=== PATIENT | male | born 1965 | race Two or more races ===

== ENCOUNTER 2024-12-28 12:36 | Emergency (ER) | payer OTHER, SELFPAY ==
[2024-12-28 12:43] VITALS: BMI 29.2
[2024-12-28 12:55] VITALS: BP 187/78; PULSE 48; RESP 17; TEMP 36.5; O2SAT 99
--- NOTE | 2024-12-28 12:55 | XR_ITS ---
Examination: AP chest single view TECHNIQUE: AP upright portable chest single view Date and time: December 28, 2024 1502 hours INDICATIONS: Chest pain shortness of breath beginning 2 days ago. FINDINGS: Median sternotomy wires. Normal heart size. No pneumonia or pulmonary edema The osseous structures are intact IMPRESSION: No active disease
--- NOTE | 2024-12-28 12:55 | EKG_ITS ---
[facility] Test Date: 2024-12-28 Pat Name: JARVIS DARDEN Department: Room: - Gender: Male Psychiatric Tech: : [id number] Requested By: Brenton Stanford Order Number: [id number] Reading MD: Brenton Stanford Measurements Intervals Watts Rate: 42 P: 38 NH: 182 QRS: -6 QRSD: 101 T: 105 QT: 453 QTc: 380 Interpretive Statements SINUS BRADYCARDIA POSSIBLE ANTERIOR MYOCARDIAL INFARCTION , OF INDETERMINATE AGE [30 ms Q WAVE IN V3/V4, OR R < 0.2 mV IN V4] No previous ECG available for comparison /store/S0/[id number].pdf
--- NOTE | 2024-12-28 12:56 | PD.EDRME ---
Rapid Medical Screening Exam RME Arrival date/time: 12/28/24 12:36 CC: Abrupt onset shortness of breath lasting approximately 15 to 20 seconds HPI onset 20 minutes ago with spontaneous resolution patient is very concerned as he had triple bypass surgery 2 years ago currently the patient is chest pain-free with no shortness of breath. Chief Complaint: Shortness of Breath/Dyspnea Time Seen by Provider: 12/28/24 12:53
--- NOTE | 2024-12-28 13:10 | PC.NURSE ---
Pt speaking in full, complete sentences without difficulty. Skin is warm and dry. Pt ambulating without incidence. Pt insistant that he needed to move his rental car. Pt ambulated off unit and returned without difficulty after moving his car.
--- NOTE | 2024-12-28 13:19 | PD.EDSOB ---
ED SOB =RME/HPI General Chief Complaint: Shortness of Breath/Dyspnea Stated Complaint: SOB, DIAPHORETIC, LOW BLOOD SUGAR Time Seen by Provider: 12/28/24 12:53 Arrival date/time: 12/28/24 12:36 RME / HPI RME / HPI Narrative: 59-year-old male patient with significant history of CAD, hypertension, diabetes mellitus, came in for evaluation regarding abrupt onset shortness of breath lasting approximately 15 to 20 seconds HPI onset 20 minutes ago with spontaneous resolution. Patient is very concerned as he had triple bypass surgery 2 years ago currently the patient is chest pain-free with no shortness of breath. Patient is also worried about his blood sugar, he told me it was on the 50s earlier today he ate lunch, now coming to 113. Denies any fever. Denies any chest pain. Review of Systems Review of Systems Narrative Review of Systems: Review of system reviewed and within normal limits except mentioned in HPI ED Exam Narrative Physical exam: VITAL SIGNS: Reviewed. GENERAL APPEARANCE: Alert and interactive, follows commands, no acute distress, HEAD AND FACE: Non-traumatic. ENT: PERRL, pink conjunctivitis, eyelid no trauma, Mucous membrane moist. NECK: Supple, nontender, no nuchal rigidity. CHEST: No tenderness, no crepitus, no paradoxical movement, no retractions. LUNGS: Clear, well ventilated, symmetric, no rales, no wheezing, no ronchi, no stridor, good breath sounds bilaterally. HEART: Regular rate, regular rhythm, no murmur, no gallops. ABDOMEN: Soft, positive bowel sounds, nondistended, no guarding, nontender, no rebound, no masses, RECTAL: Deferred. GENITAL: Deferred. NEUROLOGICAL: Gross motor function intact sensory function intact, Appropriate for age. MUSCULOSKELETAL: low back nontender, full range of motion. EXTREMITIES: Nontender, full range of motion. SKIN: Color pink, dry, no rash, no lacerations, no abrasions, no contusions. LYMPHATICS: Deferred. Course Quality Measures none Orders Category Date Time Status EKG (ED ONLY) *Do not use* NOW Care 12/28/24 12:55 Completed EKG (ED Only) Stat Exams 12/28/24 12:55 Draft XR chest 1V Stat Exams 12/28/24 12:55 Completed B-Type Natriuretic Peptide Stat Lab 12/28/24 13:26 Completed CBC Stat Lab 12/28/24 13:26 Completed Comprehensive Metabolic Panel Stat Lab 12/28/24 13:26 Completed Drug Screen,Urine Stat Lab 12/28/24 13:57 Completed LDH (Lactate Dehydrogenase) Stat Lab 12/28/24 13:26 Completed Magnesium Stat Lab 12/28/24 13:26 Completed Partial Thromboplastin Time Stat Lab 12/28/24 13:26 Completed Prothrombin Time with INR Stat Lab 12/28/24 13:26 Completed Troponin I Stat Lab 12/28/24 13:26 Completed Urinalysis Stat Lab 12/28/24 13:57 Completed Vital Signs Vital signs: Vital Signs Temperature 97.7 F 12/28/24 12:55 Pulse Rate 48 L 12/28/24 12:55 Respiratory Rate 17 12/28/24 12:55 Blood Pressure 187/78 H 12/28/24 12:55 Pulse Oximetry (%) 99 12/28/24 12:55 Oxygen Delivery Method Room Air 12/28/24 12:55 Shortness of Breath / Dyspnea MDM Narrative MDM Narrative:: 59-year-old male patient with significant history of CAD, hypertension, diabetes mellitus, came in for evaluation regarding abrupt onset shortness of breath lasting approximately 15 to 20 seconds HPI onset 20 minutes ago with spontaneous resolution. Patient is very concerned as he had triple bypass surgery 2 years ago currently the patient is chest pain-free with no shortness of breath. Patient is also worried about his blood sugar, he told me it was on the 50s earlier today he ate lunch, now coming to 113. Denies any fever. Denies any chest pain. EKG showed sinus pericardia, ventricular rate of 42 bpm, No ST segment elevation depression noted. Patient's cardiac workup all came back normal. Chest x-ray came back unremarkable. Results discussed with the patient. Prior to discharge patient blood sugar was noted to be 215 on his automatic monitoring. Heart rate of 48. Patient verbalized no recurrence of shortness of breath in the ED. Patient data External records reviewed:: None Clinical information provided by:: patient Social determinants that could affect healthcare access:: none Patient has the following chronic illnesses:: CAD, status post stent placement, diabetes mellitus How is presenting disease/condition affected by chronic disease/condition?: exacerbated by Evaluation data The following diagnostics were reviewed and interpreted by me:: lab results, radiology exam(s) and EKG tracing(s) Lab and/or radiology exams considered but not ordered:: None Interpretation Summary: See results MDM Medications / Prescriptions Medications or Prescriptions considered but not ordered:: None Medication administrations:: None Consultations Consultation(s) initiated? (list below): No Diagnosis Shortness of Breath Differential Diagnosis: congestive heart failure and other (Hypoglycemia,) Most likely diagnosis given after review of the tests above:: Hypoglycemia, shortness of breath Admission Indicated Admission indicated?: not indicated Admission Request Was there a request for admission?: No Disposition Plan Disposition Plan: Discharge Discharge Attestation Discharge Attestation: The patient and all family members were given an opportunity to ask questions and understood the discharge instructions. Discharge instructions specifically effects, indications for sooner follow up or return to the emergency department, and the expected course of current diagnosis. Patient condition: Stable Discharge Plan Plan Patient Disposition: HOME (Self Care) Discharge Disposition comment: Stable Prescriptions/Referrals Referrals: No Primary/Family,Physician [Primary Care Provider] - In 1 week Problem List Clinical Impression: Shortness of breath, Hypoglycemia Patient/Caregiver Discharge Instructions Discharge Activity: activity as tolerated Education Materials: Shortness of Breath Coping Additional Instructions: Thank you for the opportunity for serving you today. You are stable for discharged . You are advised to: Follow-up with your PCP in 1 to 2 days Return to ED for worsening of symptoms Print Language: Faroese Stand Alone Forms: Caren Award Info., Patient Portal Info Letter RO/ARNOLD Supervising Physician RO/ARNOLD Supervising Physician: MD Miles
[2024-12-28 13:48] LABS: Basophils # (Auto) 0.0 Thou/mm3 (0.0-0.2); Basophils % (Auto) 0 % (0-2.5); Eosinophils # (Auto) 0.1 Thou/mm3 (0.0-0.5); Eosinophils % (Auto) 2 % (0-10); Hematocrit 40.4 % (41.0-53.0); Hemoglobin 13.5 g/dL (13.5-16.0); Immature Granulocytes Auto 0.03 Thou/mm3 (0.00-0.00); Lymphocytes # (Auto) 1.6 Thou/mm3 (1.0-4.8); Lymphocytes % (Auto) 26 % (10-50); Mean Corpuscular HGB Conc 33.4 g/dl (31.0-37.0); Mean Corpuscular Hemoglobin 31.8 pg (25.0-35.0); Mean Corpuscular Volume 95 fL (80-100); Monocytes # (Auto) 0.5 Thou/mm3 (0.0-0.8); Monocytes % (Auto) 8 % (0-12); Neutrophils # (Auto) 4.0 Thou/mm3 (1.8-7.7); Neutrophils % (Auto) 64 % (37-80); Nucleated Red Blood Cell # 0.00 Thou/mm3 (0.00-0.00); Nucleated Red Blood Cell % 0 /100 WBC (0); Platelet Count 166 Thou/mm3 (140-440); RDW Standard Deviation 44.6 fL (35.1-43.9); Red Blood Count 4.24 Miln/mm3 (4.50-5.90); White Blood Count 6.3 Thou/mm3 (3.8-10.6)
[2024-12-28 13:58] LABS: INR 1.0 (0.9-1.3); Partial Thromboplastin Time 27.8 Seconds (22.0-36.0); Prothrombin Time 11.4 Seconds (9.0-12.2)
[2024-12-28 14:00] LABS: B-Type Natriuretic Peptide 160 pg/mL (0-100)
[2024-12-28 14:01] LABS: Alanine Aminotransferase 25 U/L (10-49); Albumin, Serum 4.1 gm/dL (3.5-5.0); Albumin/Globulin Ratio 1.5 (1.2-2.2); Alkaline Phosphatase 89 U/L (46-116); Anion Gap 7 (7-16); Aspartate Amino Transferase 27 U/L (0-34); BUN/Creatinine Ratio 7 Ratio (12-20); Bilirubin,Total 0.5 mg/dL (0.3-1.2); Blood Urea Nitrogen 9 mg/dL (9-23); Calcium 8.8 mg/dL (8.3-10.6); Calcium (Corrected) 8.8 mg/dL (8.5-10.1); Carbon Dioxide 29.3 mMol/L (20.0-31.0); Chloride 101 mMol/L (98-107); Creatinine (Component) 1.3 mg/dL (0.6-1.3); Estimated Creatinine Clearance 65.3 mL/min (>60); Globulin 2.7 gm/dL (2.3-3.5); Glucose 181 mg/dL (74-106); LDH (Lactate Dehydrogenase) 198 U/L (120-246); Magnesium 1.7 mg/dL (1.6-2.6); Osmolality,Calculated 277 (275-295); Potassium 4.4 mMol/L (3.4-5.1); Sodium 137 mMol/L (136-145); Total Protein 6.8 gm/dL (5.7-8.2); Troponin I < 0.020 ng/mL (0.0-0.045); eGFR > 60 See Note
[2024-12-28 14:05] LABS: Collection Type, Urine Clean Catch; Squamous Epithelial Cell,Urine 0 /hpf (0-5)
[2024-12-28 14:14] LABS: Amphetamine/Methamp Scrn,U Negative (Negative); Barbiturate Screen,Urine Negative (Negative); Benzodiazepines Screen,Urine Negative (Negative); Benzoylecgonine Screen, Ur Negative (Negative); Fentanyl Screen,Urine Negative (Negative); Opiate Screen,Urine Negative (Negative); THC Screen,Urine Negative (Negative)
[2024-12-28 14:16] LABS: Bilirubin,Urine Negative (Negative); Blood,Urine Negative (Negative); Clarity,Urine Clear (Clear/Hazy); Color,Urine Colorless (Lt Yel-Yel); Glucose, Urine Negative (Negative); Ketones,Urine Negative (Negative); Leukocyte Esterase,Urine Negative (Negative); Nitrite,Urine Negative (Negative); PH,Urine 6.0 (5.0-7.0); Protein,Urine Negative (Neg - Trace); RBC,Urine 1 /hpf (0-3); Specific Gravity,Urine 1.005 (1.001-1.035); Urobilinogen,Urine Negative mg/dL (0.0-1.0); WBC,Urine < 1 /hpf (0-5)
[2024-12-28 14:58] VITALS: PULSE 83; RESP 20; TEMP 36
== END 2024-12-28 14:59 | disposition home or self-care (01) ==
PROVIDERS: Registered Nurse General Practice; Emergency Provider Family Medicine
DX: E11.649 Type 2 diabetes mellitus with hypoglycemia without coma (principal); R06.02 Shortness of breath; R00.1 Bradycardia, unspecified; I10 Essential (primary) hypertension; I25.10 Atherosclerotic heart disease of native coronary artery without angina pectoris; R07.9 Chest pain, unspecified; Z95.5 Presence of coronary angioplasty implant and graft
CPT/HCPCS: 36415; 71045; 80053; 80307; 81001; 83615; 83735; 83880; 84484; 85025; 85610; 85730; 93005; 99284